=== PATIENT | female | born 1930 | race Caucasian/White ===

== ENCOUNTER 2018-03-31 21:08 | Emergency (ER) | payer BC, MEDICARE, OTHER ==
[~2018-03-31] VITALS: Ht 162.6 cm; Wt 55.3 kg
[2018-03-31] MEDS ORDERED: MELOXICAM7.5 MG PO (21:22)
[2018-03-31 21:26] VITALS: BP 178/47
--- NOTE | 2018-03-31 21:58 | Emergency Room Report ---
History of Present Illness General Chief Complaint: Laceration Source: Patient Present Illness HPI This is an 87-year-old female who is right-hand dominant. She has a history high blood pressure. She presents with chief complaint of laceration to the left ring finger. Her refrigerator door close on her finger. Occurred just prior to arrival. Tetanus up-to-date. Pain is throbbing nature. 8 out of 10. No nausea no vomiting. No fever or chills. Bleeding but controlled with pressure. Allergies: Coded Allergies: No Known Allergies (Unverified , 02/13/14) Patient History Past Medical History: see triage record, old chart reviewed, HTN Past Surgical History: other Pertinent Family History: none Social History: Denies: smoking Last Menstrual Period: n/a Now: No Immunizations: UTD Reviewed Nursing Documentation: PMH: Agreed; PSxH: Agreed Nursing Documentation-PMH Past Medical History: No History, Except For Hx Hypertension: Yes Review of Systems Eye: Denies: eye pain, blurred vision ENT: Denies: ear pain, nose congestion, throat swelling Respiratory: Denies: cough, shortness of breath Cardiovascular: Denies: chest pain, palpitations Gastrointestinal: Denies: abdominal pain, diarrhea, nausea, vomiting Musculoskeletal: Denies: back pain, joint pain Skin: Denies: rash Neurological: Denies: headache, numbness Endocrine: Denies: increased thirst, increased urine Hematologic/Lymphatic: Denies: easy bruising All Other Systems: negative except mentioned in HPI Physical Exam Vital Signs Date Time Temp Pulse Resp B/P (MAP) Pulse Ox O2 Delivery O2 Flow Rate FiO2 03/31/18 21:17 98.6 87 16 178/47 99 Room Air 98.6 vitals with high blood pressure Sp02 EP Interpretation: reviewed, normal General Appearance: well appearing, no apparent distress, alert Head: normocephalic, atraumatic Eyes: bilateral eye PERRL, bilateral eye EOMI ENT: hearing grossly normal, normal pharynx Neck: full range of motion, supple, no meningismus Respiratory: chest non-tender, lungs clear, normal breath sounds Cardiovascular #1: regular rate, rhythm, no murmur Gastrointestinal: normal bowel sounds, non tender, no mass, no organomegaly, no bruit, non-distended Musculoskeletal: back normal, gait/station normal, normal range of motion, other - Left ring finger: There is a 2 cm laceration over the distal phalanx on the volar aspect. Full range of motion of the MCP, PIP, DIP joint. The refill less than 2 seconds. No foreign body. No tendon laceration. Neurologic: alert, oriented x3 Psychiatric: mood/affect normal Skin: warm/dry Procedures Splinting Splinting : Consent: Verbal Location: Left ring finger Pre-Made Type: metal Pre-Proc Neuro Vasc Exam: normal Post-Proc Neuro Vasc Exam: normal Patient Tolerated: Well Complications: None Laceration/Wound Repair Laceration/Wound Repair : Consent: Verbal Wound Location: upper extremity Wound's Depth, Shape: irregular, flap, contused tissue Wound Length (cm): 2 Wound Explored: clean Irrigated w/ Saline (ccs): 1000 Betadine Prep?: Yes Anesthesia: 1% Lidocaine Volume Anesthetic (ccs): 2 Wound Repaired With: sutures Suture Size/Type: 6:0, proline Number of Sutures: 6 Medical Decision Making Diagnostic Impression: Primary Impression: Laceration ER Course Patient with a finger laceration. No foreign body. No fracture. We'll discharge home. Last Vital Signs Date Time Temp Pulse Resp B/P (MAP) Pulse Ox O2 Delivery O2 Flow Rate FiO2 03/31/18 21:26 98.6 16 178/47 99 Room Air 98.6 03/31/18 21:17 87 Status: improved Disposition: HOME, SELF-CARE Condition: Stable Scripts Cephalexin* (KEFLEX*) 500 Mg Capsule 500 MG ORAL TID, #21 CAP Prov: FUAD SHANKAR M.D. 03/31/18 Hydrocodone/Acetaminophen 5-325* (HYDROCODONE/ACETAMINOPHEN 5-325*) 1 Each Tablet 1 TAB ORAL Q6H PRN for For Pain, #15 TAB 0 Refills Prov: FUAD SHANKAR M.D. 03/31/18 Patient Instructions: Laceration Care, Adult Additional Instructions: Follow-up with your DrViktor in 3-5 days for recheck. Suture out in 7-10 days. Return if worse. FUAD SHANKAR M.D. Mar 31, 2018 21:58
[2018-03-31] MEDS ORDERED: Cephalexin 500mg cap ORAL ONE (22:00)
[2018-03-31] MEDS ORDERED: Norco 5mg/325mg tab ORAL ONE (22:00)
[2018-03-31] MEDS ORDERED: CEPHALEXIN500 MG ORAL (22:01)
[2018-03-31] MEDS ORDERED: HYDROCODON-ACE1 EA15 ORAL (22:01)
[2018-03-31 22:18] VITALS: BP 178/47
== END 2018-03-31 22:18 | disposition home or self-care (01) ==
LOC: EMR 22:01
DX: S61.215A Laceration without foreign body of left ring finger without damage to nail, initial encounter (principal); W23.0XXA Caught, crushed, jammed, or pinched between moving objects, initial encounter; Y93.89 Activity, other specified; Y92.9 Unspecified place or not applicable; I10 Essential (primary) hypertension
CPT/HCPCS: 29130; 99282